=== PATIENT | female | born 1955 ===

== ENCOUNTER 2018-08-11 07:42 | Outpatient (CLI) | payer OTHER ==
[~2018-08-11] VITALS: Ht 162.6 cm; Wt 79.4 kg
[2018-08-11] MEDS ORDERED: ZANTAC300 MG PO (10:42)
== END 2018-08-11 08:00 | disposition home or self-care (01) ==
LOC: OFIC 805 07:42
DX: L50.8 Other urticaria (principal); J31.0 Chronic rhinitis; J37.0 Chronic laryngitis; H61.23 Impacted cerumen, bilateral

== ENCOUNTER 2020-12-25 07:54 | Outpatient (CLI) | payer OTHER ==
[~2020-12-25 07:54] MED LIST: ZANTAC300 MG PO
== END 2020-12-25 07:55 | disposition home or self-care (01) ==
LOC: NUCLEAR 07:54
PROVIDERS: ATTEND Internal Medicine Cardiovascular Disease
DX: I25.9 Chronic ischemic heart disease, unspecified (principal)
CPT/HCPCS: 78452; 93017; A9500